=== PATIENT | female | born 1985 | race Caucasian/White ===

== ENCOUNTER 2018-11-22 10:28 | Outpatient (CLI) | payer OTHER ==
[2018-11-22 12:19] LABS: BASOPHILS % (AUTO) 0.2 % (0.0-2.0); EOSINOPHILS # (AUTO) 0.1 K/uL (0-0.4); EOSINOPHILS % (AUTO) 1.6 % (0.0-4.0); HEMATOCRIT 42.3 % (36-48); LYMPHOCYTES # (AUTO) 2.3 K/uL (2.5-16.5); LYMPHOCYTES % (AUTO) 26.1 % (20.5-51.1); MEAN CORPUSCULAR HEMOGLOBIN 30 pg (27-31); MEAN CORPUSCULAR HGB CONC 33 g/dL (33-37); MEAN CORPUSCULAR VOLUME 89.8 fL (80-94); MONOCYTES # (AUTO) 0.5 K/uL (0.8-1.0); MONOCYTES % (AUTO) 5.3 % (1.7-9.3); NEUTROPHILS % (AUTO) 66.8 % (42.2-75.2); PLATELET COUNT (AUTO) 265 K/uL (140-450); RED BLOOD CELL COUNT(AUTO) 4.71 MIL/uL (4.20-5.40); RED CELL DISTRIBUTION WIDTH 14.3 % (11.6-13.7)
[2018-11-22 12:20] LABS: APPEARANCE,URINE CLEAR (CLEAR); BILIRUBIN,URINE NEGATIVE (NEGATIVE); BLOOD, URINE NEGATIVE (NEGATIVE); COLOR,URINE YELLOW (YELLOW); LEUKOCYTE ESTERASE ,URINE NEGATIVE (NEGATIVE); NITRITE, URINE NEGATIVE (NEGATIVE); PH,URINE 5.5 (5.0-9.0); UGLUCOSE NEGATIVE (NEGATIVE)
[2018-11-22 12:52] LABS: ALBUMIN 3.8 g/dL (3.4-5.0); ANION GAP 9.4 (8-16); CARBON DIOXIDE 28.5 mmol/L (21-32); CHOL/HDL RATIO 4.4 (1-4.5); CREATININE 0.7 mg/dL (0.6-1.3); MAGNESIUM 2.1 mg/dL (1.8-2.4); PHOSPHORUS 3.7 mg/dL (2.5-4.9); POTASSIUM 3.9 mmol/L (3.5-5.1); THYROID STIMULATING HORMONE 1.15 uIU/mL (0.34-3.74); TOTAL BILIRUBIN 0.4 mg/dL (0.0-1.0)
[2018-11-22 13:11] LABS: URIC ACID 4.4 mg/dL (2.6-7.2)
[2018-11-23 09:20] LABS: ESTRADIOL SERUM 34.5 pg/mL (.); FOLLICLE STIMULATING HORMONE 6.8 mIU/mL (.); LUTEINIZING HORMONE 8.1 mIU/mL (.); PROLACTIN 7.7 ng/mL (4.8-23.3); T4 (THYROXINE) 5.1 ug/dL (4.5-12.0)
== END 2018-11-22 20:45 | disposition home or self-care (01) ==
LOC: MLB 10:28
DX: D64.9 Anemia, unspecified (principal); R53.83 Other fatigue
CPT/HCPCS: 36415; 80053; 81003; 82306; 82670; 83001; 83002; 83036; 83735; 84100; 84146; 84403; 84436; 84443; 84479; 84480; 84550; 85025; 86140; 87086

== ENCOUNTER 2019-08-17 20:28 | Emergency (ER) | payer OTHER, SELFPAY ==
[~2019-08-17] VITALS: Ht 182.9 cm; Wt 95.3 kg
[2019-08-17 20:33] VITALS: BP 149/90
--- NOTE | 2019-08-17 21:12 | NUR ---
33 Y/O FEMALE PRESENTS TO THE ER WITH PRODUCTIVE COUGH X 1WEEK. PT DESCRIBES PRODUCING GREEN PHLEGM MAINLY EXPECTORATED IN THE MORNING, AND LITTLE TO NO PHLEGM THROUGHOUT THE DAY. 0/10 PAIN. DENIES SOB, " I CAN'T TAKE A DEEP BREATH AND HOLD IT IN". R/R EQUAL, AND UNLABORED. DENIES NAUSEA, VOMITING, DIARRHEA, FEVER. PT STATES SHE WAS SEEN BY DR. ALONZO 08/16/19 AND GIVEN PREDNISONE AND A RASH/BURN APPEREARED ON THE RIGHT FLANK AREA, AND BILATERAL THIGH. PER PT WAS TOLD TO STOP RX, BY DR. ROMERO, AND COME INTO ER. ALSO IS PRESCRIBED FLONASE BUT SOMETIMES PRODUCES NOSEBLEEDS, AND ITCHY THROAT. LMP 08/07/19 SIDE RAIL X1, WILL CONTINUE TO MONITOR. DENIES PMH NKDA
[2019-08-17 22:02] VITALS: BP 149/90
--- NOTE | 2019-08-17 22:04 | NUR ---
Patient discharged with v/s stable. Written and verbal after care instructions given and explained. Patient alert, oriented and verbalized understanding of instructions. Ambulatory with steady gait. All questions addressed prior to discharge. ID band removed. Patient advised to follow up with PMD. Rx of AZITHROMYCIN, PROMETHAZINE/DEXTROMETHORPHAN given. Patient educated on indication of medication including possible reaction and side effects. Opportunity to ask questions provided and answered.
== END 2019-08-17 22:04 | disposition home or self-care (01) ==
LOC: MED 20:28 → EEVIPCON 20:28 → MED 22:04
DX: R05 Cough (principal); Z20.828 Contact with and (suspected) exposure to other viral communicable diseases; R06.02 Shortness of breath
CPT/HCPCS: 36415; 71045; 87635; 87804; 99284; Q0092

== ENCOUNTER 2021-05-03 22:20 | Emergency (ER) | payer OTHER, SELFPAY ==
[~2021-05-03] VITALS: Ht 182.9 cm; Wt 99.1 kg
[2021-05-03 22:31] VITALS: BP 134/74
[2021-05-03] MEDS ORDERED: NACL 0.9% 1,000 ML IV SCH (23:35)
[2021-05-03] MEDS ORDERED: ALUMINUM HYD/MAG/SIMETHICONE 30 ML UDC PO ONE (23:35)
[2021-05-03] MEDS ORDERED: ONDANSETRON 4 MG/2 ML VIAL IVP ONE (23:35)
[2021-05-03] MEDS ORDERED: ACETAMINOPHEN 325 MG TAB PO ONE (23:35)
[2021-05-03 23:53] LABS: BASOPHILS % (AUTO) 0.1 % (0.0-2.0); EOSINOPHILS # (AUTO) 0.1 K/uL (0-0.4); EOSINOPHILS % (AUTO) 0.3 % (0.0-4.0); HEMATOCRIT 36.6 % (36-48); HEMOGLOBIN 12.1 g/dL (12.0-16.0); LYMPHOCYTES # (AUTO) 1.5 K/uL (2.5-16.5); LYMPHOCYTES % (AUTO) 9.7 % (20.5-51.1); MEAN CORPUSCULAR HEMOGLOBIN 29 pg (27-31); MEAN CORPUSCULAR HGB CONC 33 g/dL (33-37); MEAN CORPUSCULAR VOLUME 88.3 fL (80-94); MONOCYTES # (AUTO) 0.5 K/uL (0.8-1.0); MONOCYTES % (AUTO) 3.2 % (1.7-9.3); NEUTROPHILS # (AUTO) 13.3 K/uL (1.8-7.7); PLATELET COUNT (AUTO) 309 K/uL (140-450); RED BLOOD CELL COUNT(AUTO) 4.15 MIL/uL (4.20-5.40); WHITE BLOOD COUNT (AUTO) 15.3 K/uL (4.8-10.8)
[2021-05-03 23:53] LABS: APPEARANCE,URINE CLEAR (CLEAR); BILIRUBIN,URINE NEGATIVE (NEGATIVE); BLOOD, URINE TRACE-I (NEGATIVE); COLOR,URINE YELLOW (YELLOW); LEUKOCYTE ESTERASE ,URINE TRACE (NEGATIVE); NITRITE, URINE NEGATIVE (NEGATIVE); UGLUCOSE NEGATIVE (NEGATIVE)
[2021-05-04] MEDS ORDERED: MORPHINE SULFATE 4 MG/ML SYR IVP ONE (00:20)
[2021-05-04 00:38] LABS: ALBUMIN 2.9 g/dL (3.4-5.0); ANION GAP 13.2 (8-16); CARBON DIOXIDE 23.8 mmol/L (21-32); CREATININE 0.5 mg/dL (0.6-1.3); TOTAL BILIRUBIN 0.2 mg/dL (0.0-1.0)
[2021-05-04 01:11] LABS: NEUTROPHILS % (AUTO) 86.7 % (42.2-75.2)
[2021-05-04] MEDS ORDERED: ONDANSETRON 4 MG/2 ML VIAL IVP ONE (02:25)
--- NOTE | 2021-05-04 02:38 | NUR ---
patient refused jeramy. ERMD made aware
[2021-05-04] MEDS ORDERED: CEPH-588 PO (02:39)
[2021-05-04] MEDS ORDERED: PYRI25TA15 PO (02:39)
[2021-05-04] MEDS ORDERED: ONDA-188 SL (02:39)
[2021-05-04] MEDS ORDERED: cephALEXin 500 MG CAP PO ONE (02:40)
--- NOTE | 2021-05-04 02:55 | NUR ---
IV removed, catheter intact and site benign. Applied folded 4x4 gauze and tape to stop bleeding.
[2021-05-04 02:58] VITALS: BP 139/77
--- NOTE | 2021-05-04 02:58 | NUR ---
Patient discharged with v/s stable. Written and verbal after care instructions given and explained. Patient alert, oriented and verbalized understanding of instructions. Ambulatory with steady gait. All questions addressed prior to discharge. ID band removed. Patient advised to follow up with PMD. Rx of keflex, zofran odt, and pyridoxine hcl given. Patient educated on indication of medication including possible reaction and side effects. Opportunity to ask questions provided and answered.
== END 2021-05-04 02:58 | disposition home or self-care (01) ==
LOC: MED 22:20
DX: O99.611 Diseases of the digestive system complicating pregnancy, first trimester (principal); O98.913 Unspecified maternal infectious and parasitic disease complicating pregnancy, third trimester; K80.70 Calculus of gallbladder and bile duct without cholecystitis without obstruction; R82.71 Bacteriuria; Z79.899 Other long term (current) drug therapy; Z3A.13 13 weeks gestation of pregnancy
CPT/HCPCS: 36415; 76705; 80053; 81001; 81025; 83690; 85025; 87086; 96361; 96374; 96375; 99284; J2270; J2405; J7030

== ENCOUNTER 2022-06-04 10:07 | Outpatient (CLI) | payer OTHER ==
[~2022-06-04 10:07] MED LIST: CEPH-588 PO; ONDA-188 SL; PYRI25TA15 PO
[2022-06-04 10:39] LABS: BASOPHILS # (AUTO) 0.1 K/uL (0.00-0.22); BASOPHILS % (AUTO) 0.6 % (0.0-2.0); EOSINOPHILS # (AUTO) 0.3 K/uL (0-0.4); EOSINOPHILS % (AUTO) 2.8 % (0.0-4.0); HEMATOCRIT 40.3 % (36-48); HEMOGLOBIN 13.4 g/dL (12.0-16.0); LYMPHOCYTES # (AUTO) 2.4 K/uL (2.5-16.5); MEAN CORPUSCULAR HEMOGLOBIN 29 pg (27-31); MEAN CORPUSCULAR HGB CONC 33 g/dL (33-37); MEAN CORPUSCULAR VOLUME 87.2 fL (80-94); MONOCYTES # (AUTO) 0.7 K/uL (0.8-1.0); MONOCYTES % (AUTO) 6.7 % (1.7-9.3); NEUTROPHILS # (AUTO) 6.5 K/uL (1.8-7.7); NEUTROPHILS % (AUTO) 65.9 % (42.2-75.2); PLATELET COUNT (AUTO) 352 K/uL (140-450); RED BLOOD CELL COUNT(AUTO) 4.63 MIL/uL (4.20-5.40); RED CELL DISTRIBUTION WIDTH 14.5 % (11.6-13.7); WHITE BLOOD COUNT (AUTO) 9.8 K/uL (4.8-10.8)
[2022-06-04 11:16] LABS: APPEARANCE,URINE CLEAR (CLEAR); BILIRUBIN,URINE NEGATIVE (NEGATIVE); BLOOD, URINE NEGATIVE (NEGATIVE); COLOR,URINE YELLOW (YELLOW); LEUKOCYTE ESTERASE ,URINE NEGATIVE (NEGATIVE); NITRITE, URINE NEGATIVE (NEGATIVE); UGLUCOSE NEGATIVE (NEGATIVE)
[2022-06-04 11:21] LABS: CARBON DIOXIDE 27.8 mmol/L (21-32); CHOL/HDL RATIO 3.4 (1-4.5); CREATININE 0.6 mg/dL (0.6-1.3); POTASSIUM 3.8 mmol/L (3.5-5.1); THYROID STIMULATING HORMONE 1.23 uIU/mL (0.34-3.74); TOTAL BILIRUBIN 0.3 mg/dL (0.0-1.0)
== END 2022-06-04 19:55 | disposition home or self-care (01) ==
LOC: MLB 10:07
DX: Z13.1 Encounter for screening for diabetes mellitus (principal); Z13.9 Encounter for screening, unspecified; E55.9 Vitamin D deficiency, unspecified; J30.9 Allergic rhinitis, unspecified; Z79.899 Other long term (current) drug therapy
CPT/HCPCS: 36415; 80053; 81003; 82306; 83036; 84443; 85025; 86003

== ENCOUNTER 2023-07-21 06:34 | Outpatient (CLI) | payer OTHER ==
[2023-07-21 07:11] LABS: BASOPHILS # (AUTO) 0.1 K/uL (0.00-0.22); BASOPHILS % (AUTO) 0.5 % (0.0-2.0); EOSINOPHILS # (AUTO) 0.5 K/uL (0-0.4); EOSINOPHILS % (AUTO) 4.2 % (0.0-4.0); HEMATOCRIT 42.5 % (36-48); HEMOGLOBIN 14.3 g/dL (12.0-16.0); LYMPHOCYTES # (AUTO) 2.5 K/uL (2.5-16.5); LYMPHOCYTES % (AUTO) 22.5 % (20.5-51.1); MEAN CORPUSCULAR HEMOGLOBIN 30 pg (27-31); MEAN CORPUSCULAR HGB CONC 34 g/dL (33-37); MEAN CORPUSCULAR VOLUME 87.9 fL (80-94); MONOCYTES # (AUTO) 0.8 K/uL (0.8-1.0); MONOCYTES % (AUTO) 6.9 % (1.7-9.3); NEUTROPHILS # (AUTO) 7.3 K/uL (1.8-7.7); NEUTROPHILS % (AUTO) 65.9 % (42.2-75.2); PLATELET COUNT (AUTO) 343 K/uL (140-450); RED BLOOD CELL COUNT(AUTO) 4.84 MIL/uL (4.20-5.40); RED CELL DISTRIBUTION WIDTH 14.7 % (11.6-13.7)
[2023-07-21 07:53] LABS: ALBUMIN 3.5 g/dL (3.4-5.0); ANION GAP 11.9 (8-16); CALCIUM 9.5 mg/dL (8.5-10.1); CARBON DIOXIDE 30.4 mmol/L (21-32); CHOL/HDL RATIO 3.8 (1-4.5); CREATININE 0.7 mg/dL (0.6-1.3); POTASSIUM 4.3 mmol/L (3.5-5.1); THYROID STIMULATING HORMONE 1.37 uIU/mL (0.34-3.74); TOTAL BILIRUBIN 0.2 mg/dL (0.0-1.0); TOTAL PROTEIN, SERUM 7.8 g/dL (6.4-8.2)
[2023-07-22 10:10] LABS: HEMOGLOBIN A1C 5.8 % (4.8-5.6)
[2023-07-22 19:16] LABS: VITAMIN D, 25-HYDROXY 26.5 ng/mL (30.0-100.0)
== END 2023-07-21 20:10 | disposition home or self-care (01) ==
LOC: MLB 06:34
DX: Z13.220 Encounter for screening for lipoid disorders (principal); E55.9 Vitamin D deficiency, unspecified; Z13.1 Encounter for screening for diabetes mellitus; Z13.29 Encounter for screening for other suspected endocrine disorder
CPT/HCPCS: 36415; 80053; 82306; 83036; 84443; 85025

== ENCOUNTER 2023-09-09 16:49 | Outpatient (CLI) | payer OTHER | END 2023-09-09 22:10 | disposition home or self-care (01) | LOC: MRD 16:49 | DX: M48.02 Spinal stenosis, cervical region (principal); M54.50 Low back pain, unspecified | CPT/HCPCS: 72040; 72072; 72100 ==